=== PATIENT | female | born 1995 | race Hispanic/Latino ===

== ENCOUNTER 2024-10-31 18:44 | Emergency (ER) | payer OTHER ==
[~2024-10-31] VITALS: Ht 152.4 cm; Wt 55.8 kg
--- NOTE | 2024-10-31 19:42 | ERN ---
ED Note History of Present Illness Stated Complaint: WART BLEEDING Chief Complaint: Other Problems Time Seen by MD: 18:44 Time Seen by Midlevel: 18:50 Dictation: 29-YEAR-OLD FEMALE COMING IN WITH COMPLAINTS OF A RASH AROUND HER VAGINAL AREA. PATIENT STATES A WEEK AGO SHE HAS STARTED WITH THE VAGINAL WART.She went to the doctor and they put her on Imiquimod, states had been using the cream for 1 week, now states she had pain, and her skin looks red. Allergies: Coded Allergies: acetaminophen (Unverified Allergy, Unknown, 10/31/24) dextromethorphan (Unverified Allergy, Unknown, 10/31/24) doxylamine (Unverified Allergy, Unknown, 10/31/24) pseudoephedrine (Unverified Allergy, Unknown, 10/31/24) Past Medical History Past Medical History: No Pertinent History Surgical History: Cholecystectomy Review of System Dictation Constitutional: Negative for fever,chills, and weight loss Eyes: Negative for injury, pain,redness, and discharge ENT: Negative for injury,pain or swelling Cardiovascular: Negative for chest pain, palpitations, and edema Respiratory: Negative for shortness of breath, cough, and wheezing, Abdomen/GI: Negative for abdominal pain, nausea, vomiting, diarrhea, and constipation Back: Negative for injury and pain : Negative for injury, bleeding and discharge, painful right labia MS/Extremity: Negative for injury and deformity Skin: Negative for rash, and discoloration Neuro: Negative for headache, weakness, numbness, tingling, and seizure Psych: Negative for suicide ideation, homicidal ideation, and hallucinations Review of Systems: was completed Initial Vital Sign VS Vital Signs Date Time Temp Pulse Resp B/P (MAP) Pulse Ox O2 Delivery O2 Flow Rate FiO2 10/31/24 19:10 98.4 89 20 135/92 98 Room Air Physical Exam Dictation General: awake, alert, NAD Head/Face: Normocephalic, atraumatic Eyes: PERRL, EOMI, vision at baseline ENT: oral cavity clear, TMs clear, no signs of infection Neck: Trachea midline, supple, no nuchal rigidity Cardiovascular: RRR, normal S1/S2, No MRGs, no JVD Respiratory: CTAB, no respiratory distress, No rales or wheezes Abdomen: Soft, non-tender, non-distended, normal bowel sounds, no guarding or rebound. Skin: Warm, dry, normal turgor, no rash MS/Extremity: Pulses equal, no cyanosis, neurovascular intact, FROM Neuro: COAx4, GCS 15, strength 5/5, CN 2-12 intact, normal cerebellar exam, normal gait, Psych: Normal behavior, mood, and affect normal gu; there is excoriated right labia with sore like lesion, it does not extend into the vaginal mucosa, painful on palpation, no drainage, no foul odor. Results (Laboratory/Radiology) Laboratory/Radiology Laboratory Tests Test 10/31/24 20:25 Urine HCG, Qualitative NEGATIVE (NEGATIVE) Labs Reviewed?: Yes ED Course ED Course Orders Procedure Category Date Status Time ,Urine Test LAB 10/31/24 Complete 20:00 Ketorolac PHA 10/31/24 Verified Tromethamine 15mg/Ml 20:41 Vital Signs Date Time Temp Pulse Resp B/P (MAP) Pulse Ox O2 Delivery O2 Flow Rate FiO2 10/31/24 19:10 98.4 89 20 135/92 98 Room Air Medical Decision Making MDM MDM: 29-YEAR-OLD FEMALE COMING IN WITH COMPLAINTS OF A RASH AROUND HER VAGINAL AREA. PATIENT STATES A WEEK AGO SHE HAS STARTED WITH THE VAGINAL WART.She went to the doctor and they put her on Imiquimod, states had been using the cream for 1 week, now states she had pain, and her skin looks red. Patient states she called her OBGYN and told her it is put on apply calamine. On physical exam there is a lesion on the right labia, no drainage, no foul odor, the lesion does not extend into the vaginal mucosa. Discussed with the patient she needs to his is clean area with soap and water, and apply cold compresses and follow up with her OBGYN. Differential diagnosis: Wart, abscess, cellulitis Rationale: Tests considered and ordered secondary to shared decision making include: Previous outside records reviewed: Old ER visits. Risk of complication and/or morbidity or mortality of patient management: None Medications-Per medication reconciliation Need for hospitalization: Patient does not meet criteria for hospitalization. Need for emergency major/minor surgery: No There are no social concerns with this patient. Prescription drug management Prescriptions will include symptomatic care Patient's prior external medical records from other ER visits were reviewed by me as indicated. Prior testing and results from previous visits were reviewed. Prior tests were taken into account with medical decision making and resource utilization, independent historian/historians were used to obtain complete medical history. I independently interpreted the test that were performed, results were reviewed by me and considered findings on radiology if ordered. Medical management and examination interpretation discussions were had by me with other qualified healthcare professionals as indicated for the patient's care. DX & DISP Disposition: Discharge Departure Impression: Primary Impression: Vaginal wound Condition: Stable Additional Instructions: Cleaned with soap and water, apply cool compresses. Follow up with your OBGYN tomorrow. Referrals: SELF,REFERRAL (PCP) Time of Disposition: 20:46 I have reviewed the case, and I agree with, Diagnosis and Plan XAVIER DEY NP Oct 31, 2024 19:42
[2024-10-31 21:03] VITALS: BP 125/88; PULSE 85; RESP 20; TEMP 98.4; O2SAT 98
[2024-10-31] MEDS: ketOROlac 15MG/ML VIAL (15MG/ML) IM STA (21:03)
== END 2024-10-31 21:10 | disposition home or self-care (01) ==
LOC: EDH 18:44
DX: B07.8 Other viral warts (principal); Z90.49 Acquired absence of other specified parts of digestive tract
CPT/HCPCS: 99283; 81025; 96372; J1885; 99284